=== PATIENT | male | born 1950 | race Caucasian/White ===

== ENCOUNTER 2022-04-16 16:26 | Emergency (ER) | payer MEDICARE, MEDICAID, SELFPAY ==
[2022-04-16 16:35] VITALS: BP 151/93; PULSE 79; RESP 14; TEMP 36.6; O2SAT 98; BMI 22.8
--- NOTE | 2022-04-16 20:00 | CM.ED ---
Social Work Consult: Homeless Referral source: LAURA Baldwin This licensed master social worker met with patient in room. Introduced self and licensed master social worker role. Patient agreeable to met with this licensed master social worker. This licensed master social worker broached conversation of housing for patient. Patient reports to have been homeless for the past 5 years. Patient states to typically live in patient car but that patient car is broken down and at a shop in [place]. This licensed master social worker inquired as to how patient got to [place]. Patient reports that [facility] paid for patient to come to [place]. Patient is agreeable to this licensed master social worker contacting [facility] in [place] to see about open beds. Telephone call to [facility], intake. no open beds. This licensed master social worker back in to speak with patient. This licensed master social worker communicating that [facility] custodial in [place] does not have any open beds for the night. This licensed master social worker inquired if there is anyone that this licensed master social worker can call for patient, patient states I have no one. Patient reports to have SS disability under my moms estate for income. This licensed master social worker broached option for patient to stay in a hotel patient states everyone just wants my money. Patient then asked about grocery stores that are local as I have food stamps. This licensed master social worker educating patient on possible grocery store options that would accept patient food stamps. This licensed master social worker inquired if patient is able to afford a taxi to another homeless custodial, patient states everyone just wants my money. Patient is not forth coming about if patient has funds and is reluctant to options this licensed master social worker has provided to patient. Patient is not agreeable to a homeless custodial in [place]. This licensed master social worker offered to call [facility] in [place], patient agreeable to this. Telephone call to [facility], no answer as after business hours. Patient updated. Patient states not sure what I am going to do. This licensed master social worker encouraged patient to pay for a taxi to a hotel if patient is able to afford this, patient again is not open to if patient is able to afford hotel or taxi and becomes agitated when this licensed master social worker inquires about financial status of patient. Patient reluctant to accept information or recommendations. This licensed master social worker provided patient with local street card for custodial information as well as food options. Patient educated that no other housing options in [place] and encouraged patient to consider a hotel, patient not agreeable to this. Medical team updated that patient not agreeable to recommendations and difficult to determine financial support for patient currently. PLAN: Patient to be medically treated and then discharged to the community, if medically cleared with resources and recommendations provided. Nishant ANDERSON, KENDRA
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
[2022-04-16 20:52] VITALS: RESP 20
== END 2022-04-16 20:56 | disposition home or self-care (01) ==
PROVIDERS: Emergency Provider Student in an Organized Health Care Education/Training Program; Visit Provider Student in an Organized Health Care Education/Training Program
DX: G89.29 Other chronic pain (principal); Z76.0 Encounter for issue of repeat prescription; M54.2 Cervicalgia
CPT/HCPCS: 99284

== ENCOUNTER 2022-05-29 16:31 | Emergency (ER) | payer MEDICARE, MEDICAID, SELFPAY ==
[2022-05-29 16:32] VITALS: BP 135/100; PULSE 89; RESP 16; TEMP 36.1; O2SAT 93; BMI 22.8
--- NOTE | 2022-05-29 18:43 | EX.ED.VISEXT ---
HPI History of Present Illness HPI Narrative: 71-year-old male complaining of chronic right hip pain. He said he has had this for decades. He denies any recent fall injury or trauma. He denies any fever, chills or redness. This is not a new problem. There is been no change. He states he was taken a muscle relaxant that helped improve the pain. Chief Complaint: Other, Pain/Inj Informant: patient Occured/Mechanism Mechanism/Context: No injury and No blunt trauma Onset/Context/Timing Onset: - (Many, many years.) Context: Gradual Onset Timing: Continuous Quality of Pain: Dull and Aching Current Severity: Mild Maximum Severity: Mild Associated Symptoms Associated Symptoms: Negative for Parasthesia, Weakness or Loss of Funtion Narrative Narrative: 71-year-old male with chronic right hip pain from degenerative arthritis. States he is homeless. He is looking for something for pain. He denies any recent fall, injury or trauma. He denies any fever or chills. He denies any redness, warmth or swelling. There is no change to the pain. Prior similar symptoms: Yes Recent Illness/Hospitalization: No ROS ROS ED ROS Narrative Denies recent illness. Review of Systems ROS Unobtainable: Denies due to encephalopathy Constitutional Constitutional ED: Denies chills or fever(s) Eyes Eyes: Denies blurry vision ENT ENT ED: Denies ear pain Cardiovascular Cardiovascular: Denies chest pain Respiratory/Chest Respiratory/Chest: Denies cough Gastrointestinal Gastrointestinal: Denies abdominal pain Genitourinary Genitourinary ED: Denies dysuria Musculoskeletal Musculoskeletal: Denies arthralgias, back pain, myalgias or neck pain Integumentary Denies abscess Neurologic Neurologic: Denies headache(s) Endocrine Endocrinology: Denies polydipsia Hematologic/Lymphatic Hematologic/Lymphatic: Denies easy bleeding Allergic/Immunologic Allergic/Immunologic ED: Denies mouth swelling or tongue swelling PFSH PFSH Home Medications cyclobenzaprine 5 mg tablet 5 mg PO QHS PRN muscle spasm #5 tabs 04/16/22 [Rx Last Taken Unknown] Allergy/AdvReac Type Severity Reaction Status Date / Time tyrothricin Allergy Anaphylaxis Verified 05/29/22 16:32 codeine AdvReac Other Verified 05/29/22 16:32 Social History Smoking Status: Never smoker EXAM Physical Exam Narrative Exam Narrative: Well-appearing 71-year-old male. Vital signs stable afebrile. No distress. H EENT exam unremarkable. Moist mucous members. Lungs clear. Heart regular rhythm. Abdomen soft nontender. Moving all 4 extremities. Specifically the right hip we took down his jeans. He has full flexion extension internal or external rotation of the hip. There is no shortening or rotation. There is no redness or warmth. No cellulitis. Absolutely no signs of septic joint. No signs of fracture. No signs of dislocation. He has normal flexion extension of his right knee and right foot and ankle. Normal dorsi plantarflexion. Right lower leg is neurovascular intact. Back is nontender. Neurologic exam is unremarkable. Const Vital Signs: 05/29/22 16:32 Temperature 96.9 F L Temperature Source Temporal Pulse Rate 89 Respiratory Rate 16 Blood Pressure 135/100 H Blood Pressure Mean 111 Pulse Ox 93 Oxygen Delivery Method Room Air Positive well nourished and well developed; Negative for obese, cachectic, contractures or unkempt General Appearance ED: well developed and NAD; Negative for unkempt, cachectic or contractures Nutritional Appearance: Negative for cachectic or obese HEENT Reports moist mucous membranes normocephalic and atraumatic; Negative for trauma or tenderness Eyes EOMs intact bilaterally General Eye ED: Negative for other Neck full ROM and no lymphadenopathy General: Negative for tenderness Resp normal respiratory effort and clear to auscultation bilaterally Effort and Inspection: Negative for other Auscultation: Negative for rales or rhonchi Cardio regular rate, regular rhythm, S1 normal heart sound, S2 normal heart sound and no murmurs GI non-tender, non-distended and no masses Inspection: Negative for abdominal distention Auscultation: normoactive bowel sounds Palpation: soft; Negative for tender or guarding Back/Spine no CVA tenderness General Back: Negative for CVA tenderness Cervical Spine: Negative for cervical spine tenderness Thoracic Spine / Upper Back: Negative for thoracic spinal tenderness Lumbar Spine / Lower Back: Negative for lumbar spinal tenderness Extremity normal to inspection General Extremety ED: Negative for deformity, edema or tenderness General Extremity: Negative for deformity or edema Neuro oriented x3 and CN's II-XII intact bilaterally Sensorium / Orientation: alert, oriented to person, oriented to place and oriented to time; Negative for orientation impaired, confused, lethargic or stuporous Motor Exam: strength 5/5 throughout Psych mental status grossly normal and thought process normal Appearance: Negative for unkempt or other Attitude: No agitated Mood & Affect: Negative for anxious Skin skin turgor normal General Skin Exam: Negative for other Lesions: no lesions Rashes: no rashes Trauma: Negative for abrasion MDM MDM MDM Narrative Medical decision making narrative: 71-year-old male with acute on chronic right hip pain with no signs of any acute infection and no history or signs of trauma. I explained to the patient this is not some we would put him on narcotics for his chronic pain. He will be given p.o. Tylenol here. Follow-up with his primary care physician in [place]. He does not need any x-rays or labs. He does not need any imaging of any type. His exam is benign. Discharge Plan Triage Chief Complaint: Other, Pain/Inj ED Provider: Rachid Hare Dx/Rx/DC Orders Clinical Impression: Acute hip pain, Arthritis Instructions: ED Osteoarthritis Prescriptions: No Action cyclobenzaprine 5 mg tablet 5 mg PO QHS PRN (Reason: muscle spasm) Qty: 5 0RF Primary Care Provider: Care Physician,No Primary Referrals: Care Physician,No Primary [Primary Care Provider] - Activity Restrictions/Additional Instructions: Tylenol and limited Motrin for pain. Ice to your hip. Follow-up with your primary care physician. Disposition Disposition: Home, Self Care
[2022-05-29] MEDS: Acetaminophen 500 MG Tablet 1000 MG PO (18:47)
== END 2022-05-29 18:52 | disposition home or self-care (01) ==
PROVIDERS: Emergency Provider Emergency Medicine; Visit Provider Emergency Medicine
DX: M25.551 Pain in right hip (principal); G89.29 Other chronic pain; M16.10 Unilateral primary osteoarthritis, unspecified hip
CPT/HCPCS: 99283

== ENCOUNTER 2022-07-29 00:34 | Emergency (ER) | payer MEDICARE, MEDICAID, SELFPAY ==
[2022-07-29 00:35] VITALS: BP 144/76; PULSE 91; RESP 18; TEMP 36.2; O2SAT 97; BMI 26.4
--- NOTE | 2022-07-29 03:05 | EDS_ITS ---
HPI History of Present Illness Chief Complaint: Other, Pain/Inj Narrative Narrative: Patient is a 71-year-old male who reports no significant past medical history. He was brought in by EMS this evening. EMS states that the patient is reportedly homeless and called them because he was tired of walking. EMS took him to a long-term at which point EMS reports that the patient told them that he did not want to stay there. EMS informed him that he was not having any type of medical emergency which would necessitate transfer the hospital. However the patient stated his hands and feet were cold and wanted evaluated for this. Secondary to this complaint the patient was brought in for evaluation. Upon arrival to the hospital the patient does admit to having cold hands and feet and otherwise has no complaints. PFSH PFSH Home Medications cyclobenzaprine 5 mg tablet 5 mg PO QHS PRN muscle spasm #5 tabs 04/16/22 [Rx Last Taken Unknown] Allergy/AdvReac Type Severity Reaction Status Date / Time tyrothricin Allergy Anaphylaxis Verified 07/29/22 00:40 codeine AdvReac Other Verified 07/29/22 00:40 Social History Smoking Status: Current every day smoker tobacco type: cigarettes ROS ROS ED Constitutional Constitutional ED: Denies chills or fever(s) Eyes Eyes: Denies change in vision ENT ENT ED: Denies sore throat Cardiovascular Cardiovascular: Denies chest pain Respiratory/Chest Respiratory/Chest: Denies cough or dyspnea Gastrointestinal Gastrointestinal: Denies abdominal pain, diarrhea, nausea or vomiting Genitourinary Genitourinary ED: Denies dysuria Musculoskeletal Musculoskeletal: Denies myalgias Integumentary Denies rash Neurologic Neurologic: Denies headache(s), paresthesias or weakness Hematologic/Lymphatic Hematologic/Lymphatic: Denies easy bleeding or easy bruising EXAM Physical Exam Const Vital Signs: 07/29/22 00:35 07/29/22 00:37 Temperature 97.2 F L Temperature Source Temporal Pulse Rate 91 Respiratory Rate 18 Respiratory Effort Normal Respiratory Pattern Normal Blood Pressure 144/76 H Blood Pressure Mean 98 Pulse Ox 97 Oxygen Delivery Method Room Air Positive well nourished and well developed General Appearance ED: well developed Eyes PERRL and EOMs intact bilaterally Neck supple Resp normal respiratory effort and clear to auscultation bilaterally Cardio regular rate and regular rhythm Extremity normal to inspection Extremity Narrative: Bilateral upper and lower extremities are neurovascularly intact. Capillary refill is less than 3-second. Patient has wet socks with mild maceration of the soft tissue/skin of the feet without secondary changes to suggest infection. No signs of frostbite noted to the hands or feet. Neuro oriented x3 and CN's II-XII intact bilaterally Sensorium / Orientation: alert Psych Psych Narrative: Patient has a flat affect Skin Skin Narrative: Soft tissue changes to the feet as documented above without signs of neurovascular compromise or acute infection. MDM MDM MDM Narrative Medical decision making narrative: Patient presented to the ER with stable vitals. He reported cold hands and feet. Differential includes infectious process DVT or arterial occlusion. By exam there is no asymmetric swelling or warmth so my concern for DVT is low also without overlying erythema or warmth concerning for cellulitis or abscess formation is low. Patient has capillary refill that is less than 3 seconds with bilateral equal pulses in the arms and legs going against arterial occlusion. He does have some soft tissue breakdown but there is no secondary changes to suggest infection and no signs of frostbite. Therefore there is no need for work-up at this time. Patient was informed that he cannot stay at the hospital as he does not have a medical emergency that needs further evaluated and he will be discharged at this time History & Record Review Discussion w/independent historian: EMS personnel and Patient Discharge Plan Triage Chief Complaint: Other, Pain/Inj ED Provider: Rg Burnett Dx/Rx/DC Orders Clinical Impression: Cold feeling, Homelessness Instructions: ED Symptoms With Uncertain Cause Prescriptions: No Action cyclobenzaprine 5 mg tablet 5 mg PO QHS PRN (Reason: muscle spasm) Qty: 5 0RF Primary Care Provider: Care Physician,No Primary Referrals: Care Physician,No Primary [Primary Care Provider] - Disposition Disposition: Home, Self Care
[2022-07-29 03:19] VITALS: BP 124/77; PULSE 62; RESP 15; O2SAT 96
== END 2022-07-29 03:20 | disposition home or self-care (01) ==
PROVIDERS: Emergency Provider Emergency Medicine; Visit Provider Emergency Medicine
DX: R20.9 Unspecified disturbances of skin sensation (principal); F17.210 Nicotine dependence, cigarettes, uncomplicated; Z59.00 Homelessness unspecified
CPT/HCPCS: 99285

== ENCOUNTER → 2024-09-23 | Outpatient (CLI) | payer MEDICARE, MEDICAID, SELFPAY | END | disposition home or self-care (01) | LOC: PSN 08:06 | PROVIDERS: PCP Internal Medicine Infectious Disease; Referring Provider Internal Medicine Infectious Disease; Visit Provider Internal Medicine Infectious Disease | DX: R06.02 Shortness of breath (principal) | CPT/HCPCS: 94060; 94726 ==